=== PATIENT | male | born 1970 | race Caucasian/White ===

== ENCOUNTER 2017-10-22 18:34 | Emergency (ER) | payer MEDICAID, OTHER ==
--- NOTE | 2017-10-22 19:00 | ED PDOC ---
HPI: Psych/Substance Abuse Time Seen by Provider: 10/22/17 18:42 Chief Complaint (Nursing): Alcohol Ingestion Chief Complaint (Provider): etoh History Per: Patient, EMS Additional Complaint(s): 47 y/o male presents acutely intoxicated. Patient was kicked off of a commuter bus for being intoxicated. Ambulance was called and he was brought here. Patient vomited all over himself just prior to arrival to ED. Past Medical History Reviewed: Historical Data, Nursing Documentation, Vital Signs Vital Signs: Last Vital Signs Temp 97.8 F 10/22/17 18:38 Pulse 74 10/22/17 18:38 Resp 18 10/22/17 18:38 BP 130/80 10/22/17 18:38 Pulse Ox 96 10/22/17 18:38 - Medical History PMH: No Chronic Diseases - Family History Family History: States: No Known Family Hx - Living Arrangements Living Arrangements: With Family - Social History Current smoker - smoking cessation education provided: No Alcohol: Social Drugs: Denies - Allergies Allergies/Adverse Reactions: Allergies Allergy/AdvReac Type Severity Reaction Status Date / Time No Known Allergies Allergy Verified 10/22/17 18:38 Review of Systems ROS Statement: Except As Marked, All Systems Reviewed And Found Negative Gastrointestinal: Positive for: Vomiting Psych: Positive for: Other (etoh) Physical Exam - Reviewed Nursing Documentation Reviewed: Yes Vital Signs Reviewed: Yes - Physical Exam Appears: Negative for: Well (covered in vomit) Skin: Positive for: Normal Color. Negative for: Rash Eye Exam: Positive for: Normal appearance Cardiovascular/Chest: Positive for: Regular Rate, Rhythm Respiratory: Positive for: Normal Breath Sounds. Negative for: Respiratory Distress Extremity: Positive for: Normal ROM Neurologic/Psych: Positive for: Alert, Oriented - Laboratory Results Result Diagrams: 10/22/17 19:20 10/22/17 19:20 - ECG O2 Sat by Pulse Oximetry: 96 Pulse Ox Interpretation: Normal Medical Decision Making Medical Decision Makin-year-old intoxicated male. Plan: CBC CMP BAL BAL: 185 Zofran IM ordered but patient declined. 9:00 pm: Patient is awake and alert with steady gait. His is at bedside and will take him home. Patient is stable for discharge. Disposition - Clinical Impression Clinical Impression: Alcohol ingestion - Patient ED Disposition Is Patient to be Admitted: No Counseled Patient/Family Regarding: Need For Followup - Disposition Referrals: [facility] [Outside] Disposition: Routine/Home Disposition Time: 21:03 Condition: STABLE Additional Instructions: Follow-up as needed with clinic or primary doctor. Instructions: Effects of Alcohol on Your Health Forms: [employer] (Yoruba) Results - Lab Results Lab Results: 10/22/17 10/22/17 10/22/17 19:20 19:20 18:44 WBC 7.8 RBC 4.97 Hgb 14.9 Hct 43.9 MCV 88.4 MCH 30.0 MCHC 33.9 RDW 13.9 Plt Count 172 MPV 10.4 Neut % (Auto) 51.4 Lymph % (Auto) 37.8 [place] % (Auto) 9.4 Eos % (Auto) 0.9 Baso % (Auto) 0.5 Neut # (Auto) 4.0 Lymph # (Auto) 3.0 [place] # (Auto) 0.7 Eos # (Auto) 0.1 Baso # (Auto) 0.0 Sodium 143 Potassium 3.9 Chloride 105 Carbon Dioxide 24 Anion Gap 18 BUN 7 L Creatinine 0.9 Est GFR ( Amer) > 60 Est GFR (Non-Af Amer) > 60 POC Glucose (mg/dL) 108 Random Glucose 105 Calcium 9.7 Total Bilirubin 0.9 AST 33 ALT 46 Alkaline Phosphatase 61 Total Protein 8.0 Albumin 4.8 Globulin 3.2 Albumin/Globulin Ratio 1.5 Alcohol, Quantitative 185 H
[2017-10-22 19:36] LABS: BASO % 0.5 % (0.0-2.0); EOS # 0.1 K/uL (0.0-0.7); EOS % 0.9 % (0.0-4.0); HEMOGLOBIN 14.9 g/dL (12.0-18.0); LYMPH % 37.8 % (20.0-40.0); MEAN CELL VOLUME 88.4 fl (80.0-94.0); MEAN CORPUSCULAR HGB CONC 33.9 g/dL (33.0-37.0); MEAN PLATELET VOLUME 10.4 fl (7.2-11.7); MONO # 0.7 K/uL (0.0-0.8); MONO % 9.4 % (0.0-10.0); NEUT % 51.4 % (50.0-75.0); RBC 4.97 Mil/uL (4.40-5.90); RED CELL DISTRIBUTION WIDTH 13.9 % (11.5-14.5); WHITE BLOOD COUNT 7.8 K/uL (4.8-10.8)
[2017-10-22 19:41] LABS: ALB/GLOB RATIO 1.5 (1.0-2.1); ALBUMIN 4.8 g/dL (3.5-5.0); ALT/SGPT 46 U/L (21-72); AST/SGOT 33 U/L (17-59); BLOOD UREA NITROGEN 7 mg/dl (9-20); CALCIUM 9.7 mg/dL (8.4-10.2); GFR NON-AFRICAN AMERICAN > 60
[2017-10-22 21:39] VITALS: BP 126/81; PULSE 70; RESP 15; TEMP 97.9; O2SAT 100
== END 2017-10-22 21:09 | disposition home or self-care (01) ==
LOC: H.ER 18:34
DX: F10.129 Alcohol abuse with intoxication, unspecified (principal)